=== PATIENT | male | born 2000 | race African-American/Black ===

== ENCOUNTER → 2024-04-30 11:18 | Outpatient (REF) | payer OTHER, SELFPAY ==
[2024-04-30 15:06] LABS: Mumps Virus IgG Positive; Rubeola (Measles) IgG Negative; Varicella Zoster IgG (VZV) Positive
[2024-04-30 19:03] LABS: Rubella Positive
[2024-04-30 19:05] LABS: Hepatitis B Surface Antibody Negative
[2024-05-02 13:03] LABS: Quantiferon Mitogen minus NIL 9.91 IU/mL; Quantiferon NIL 0.09 IU/mL; Quantiferon Plus TB2 minus NIL 0.01 IU/mL (<=0.34); Quantiferon TB Gold Plus Negative (Negative)
== END ==
LOC: OHS 11:18
PROVIDERS: ATTENDING PHYSICIAN Nurse Practitioner
DX: Z23 Encounter for immunization (principal)
CPT/HCPCS: 36415; 86480; 86706; 86735; 86762; 86765; 86787